=== PATIENT | male | born 1960 | race Asian ===

== ENCOUNTER 2021-08-13 10:53 | Emergency (ER) | payer BC ==
[~2021-08-13] VITALS: Ht 172.7 cm; Wt 77.3 kg
[2021-08-13 11:03] VITALS: BP 198/104
== END 2021-08-13 14:34 | disposition left against medical advice (07) ==
LOC: ER 10:53
DX: I10 Essential (primary) hypertension (principal); H53.8 Other visual disturbances; Z53.21 Procedure and treatment not carried out due to patient leaving prior to being seen by health care provider
CPT/HCPCS: 93005